=== PATIENT | female | born 1970 | race Two or more races ===

== ENCOUNTER 2019-05-12 01:23 | Emergency (ER) | payer OTHER ==
[~2019-05-12] VITALS: Ht 175.3 cm; Wt 82.6 kg
[2019-05-12 01:24] VITALS: BP 141/90
[2019-05-12] MEDS ORDERED: KETOROLAC TROMETHAMINE INJ 30 MG/ML VIAL ONE (01:35)
--- NOTE | 2019-05-12 01:52 | NUR ---
Patient discharged to home in stable condition. Written and verbal after care instructions given. Patient verbalizes understanding of instruction. Pt ambulatory with a steady gait
[2019-05-12] MEDS ORDERED: KETOROLAC TROMETHAMINE INJ 60 MG/2 ML VIAL IM ONE (02:00)
== END 2019-05-12 01:54 | disposition home or self-care (01) ==
LOC: ER 01:28
DX: S16.1XXA Strain of muscle, fascia and tendon at neck level, initial encounter (principal); Z90.89 Acquired absence of other organs; V49.49XA Driver injured in collision with other motor vehicles in traffic accident, initial encounter; Y93.89 Activity, other specified; Y92.488 Other paved roadways as the place of occurrence of the external cause; Y99.8 Other external cause status
CPT/HCPCS: 96372; 99283; J1885